=== PATIENT | male | born 1950 | race Caucasian/White ===

== ENCOUNTER → 2020-02-03 | Outpatient (CLI) | payer OTHER | LOC: SJCVCIMAG 07:38 | PROVIDERS: ATTEND Internal Medicine | DX: I08.8 Other rheumatic multiple valve diseases (principal); R00.1 Bradycardia, unspecified; I50.32 Chronic diastolic (congestive) heart failure; I10 Essential (primary) hypertension; G47.33 Obstructive sleep apnea (adult) (pediatric); D50.0 Iron deficiency anemia secondary to blood loss (chronic); E78.5 Hyperlipidemia, unspecified ==

== ENCOUNTER → 2020-02-13 | Outpatient (CLI) | payer OTHER | LOC: LAB 10:05 | PROVIDERS: ATTEND Internal Medicine | DX: Z01.818 Encounter for other preprocedural examination (principal); Z11.59 Encounter for screening for other viral diseases ==

== ENCOUNTER → 2020-02-16 | Outpatient (CLI) | payer OTHER ==
--- NOTE | 2020-02-20 22:12 | SLE ---
[facility] [place] [address] POLYSOMNOGRAPHY STUDY Name: EZEQUIEL SHEPPARD Room #: REG [facility]#: [id number] Admission: 02/16/20 Attend Phys: Hipolito Camp MD Discharge: Date of : 46 Report #: [id number] THIS REPORT FOR: //name// CC: Hipolito Barros DATE OF SERVICE: 02/16/2020 SLEEP STUDY ATTENDING PHYSICIAN: Dr. Karlos More. The patient is a 69-year-old who weighs 250 pounds with a BMI of 39.2. The patient's [place] score was 5. The patient underwent diagnostic sleep study performed at [facility]. During the night study, the patient spent 470 minutes in bed and slept for 357 minutes with a sleep efficiency of 76%. Sleep latency was 31 minutes with a REM latency of 85 minutes. Sleep architecture showed normal stage 1 sleep with increased stage 2 sleep, normal slow wave and slightly reduced REM sleep, which was 14% of total sleep time. During the night study, the patient had 12 obstructive apneas, no mixed or central apneas and 36 hypopneas. The patient's AHI was 8.1 per hour with a REM AHI of 31 per hour and a supine AHI of 7.6 per hour. Nocturnal oximetry study revealed an average oxygen saturation of 94% with lowest of 75%. Seven minutes were spent in oxygen saturation of between 80% and 89%. EKG monitoring revealed an average heart rate of 59 beats per minute. No sustained arrhythmias observed. PLMS were seen at an index of 5 per hour and 2 per hour caused EEG arousals. Due to low AHI, the patient did not meet the split night criteria for CPAP initiation. IMPRESSION: 1. Mild obstructive sleep apnea with worsening during REM sleep. Total AHI 8.1 per hour with a REM AHI of 31.8 per hour. 2. Mild nocturnal hypoxia secondary to obstructive sleep apnea. 3. No clinically significant periodic limb movements. RECOMMENDATIONS: [facility] [address] [place] [address] POLYSOMNOGRAPHY STUDY Name: EZEQUIEL SHEPPARD Room #: [facility]#: [id number] Admission: 02/16/20 Attend Phys: Hipolito Camp MD Discharge: Date of : 46 Report #: [id number] 1. The patient has mild sleep apnea. 2. Weight loss as initial form of treatment can be considered. However, if the patient has comorbid conditions or is clinically symptomatic, then consider treatment of sleep apnea with either CPAP versus oral appliance. 3. Once the patient is optimally treated, then follow up in 4-6 weeks to assess compliance with CPAP and to document clinical improvement. 4. Avoid [employer] depressants. 5. Cautioned regarding driving until symptoms of sleep apnea resolve with the above recommendations. <ELECTRONICALLY SIGNED> By: Hipolito Camp MD 02/20/20 [id number] Hipolito Camp MD /ghulam
== END ==
LOC: SLEEPLAB 13:43
PROVIDERS: ATTEND Internal Medicine Critical Care Medicine
DX: G47.33 Obstructive sleep apnea (adult) (pediatric) (principal)

== ENCOUNTER → 2020-03-19 | Outpatient (CLI) | payer OTHER | LOC: SJCVC 10:30 | PROVIDERS: ATTEND Internal Medicine | DX: R06.09 Other forms of dyspnea (principal); I11.0 Hypertensive heart disease with heart failure; I50.32 Chronic diastolic (congestive) heart failure; D50.0 Iron deficiency anemia secondary to blood loss (chronic); G47.33 Obstructive sleep apnea (adult) (pediatric); E78.5 Hyperlipidemia, unspecified; Z79.899 Other long term (current) drug therapy ==